=== PATIENT | female | born 1980 | race Caucasian/White ===

== ENCOUNTER 2016-06-19 10:26 | Emergency (ER) | payer OTHER ==
[2016-06-19] MEDS ORDERED: OPTIRAY 350 50 ML HMH IV ONE (10:27)
[2016-06-19] MEDS ORDERED: METHYLPRED SOD SUCC 125 MG/2 ML VIAL ONE (12:58)
[2016-06-19] MEDS ORDERED: DIPHENHYDRAMINE 50 MG/ML VIAL ONE ×2 (12:58→13:01)
[2016-06-19] MEDS ORDERED: ED CLINDAMYCIN PREMIX 50 ML IV ONE (12:59)
== END 2016-06-19 14:00 | disposition home or self-care (01) ==
LOC: FASTR 10:26
DX: T78.40XA Allergy, unspecified, initial encounter (principal); H10.32 Unspecified acute conjunctivitis, left eye
CPT/HCPCS: 36415; 70487; 80053; 85025; 87040; 96365; 96375; 99285; J2930; Q9967